=== PATIENT | male | born 1990 | race Caucasian/White ===

== ENCOUNTER 2018-06-13 05:10 | Emergency (ER) | payer OTHER ==
[~2018-06-13] VITALS: Ht 175.3 cm; Wt 70.3 kg
[2018-06-13 05:12] VITALS: BP 134/94
--- NOTE | 2018-06-13 05:12 | NUR ---
BIB [facility] FOR PRE-BOOK EVALUATION. PT IN PHYSICAL ALTERCATION. C/O FACIAL PAIN. SEVERAL ABRASIONS AND EDMEA WITH BRUISE TO LEFT EYE. POSSIBLE ETOH. PT DENIES SUBSTANCE OR ALCOHOL USE. 7/10 FACIAL PAIN. VSS. ER MD AWARE. CONTINUE TO MONITOR.
--- NOTE | 2018-06-13 05:12 | NUR ---
PT AMBULATED PREBOOK TO CHAIR E
[2018-06-13] MEDS ORDERED: CLINDAMYCIN 150 MG CAP PO ONE (05:55)
[2018-06-13] MEDS ORDERED: IBUPROFEN 800 MG TAB PO ONE (05:55)
[2018-06-13 06:10] VITALS: BP 133/87
--- NOTE | 2018-06-13 06:10 | NUR ---
PATIENT EXAMINED BY DR. UNGER. 03/22 PAIN BUT TOLLERABLE. VSS. BLEEDING CONTROLLED. RX OF MOTRIN AND CLINDAMYCIN GIVEN. SIDE EFFECTS EXPLAINED. INSTRUCTED TO F/U WITH PCP AND WHEN TO RETURN TO ER. PT VERBALLIZED UNDERSTANDING OF DC INSTRUCTIONS. ALL QUETIONS ANSWERED. PATIENT MEDICALLY CLEARED AND RELEASED IN CUSTODY IN STABLE CONDITION. ORIGINAL PRE-BOOK FORM GIVEN TO OFFICER.
== END 2018-06-13 06:10 ==
LOC: MED 05:10
DX: S02.2XXA Fracture of nasal bones, initial encounter for closed fracture (principal); Z02.89 Encounter for other administrative examinations; Y09 Assault by unspecified means; Y93.89 Activity, other specified; Y92.89 Other specified places as the place of occurrence of the external cause; Y99.8 Other external cause status
CPT/HCPCS: 70160; 90471; 90715; 99283